=== PATIENT | female | born 1995 | race Caucasian/White ===

== ENCOUNTER 2025-07-30 10:57 | Outpatient (CLI) | payer BC, SELFPAY ==
[2025-08-01 19:54] LABS: HPV Source Cervical
[2025-08-13 10:43] LABS: Pap Test Screened Manually Done
== END 2025-07-30 10:58 | disposition home or self-care (01) ==
PROVIDERS: Visit Provider Obstetrics & Gynecology
DX: Z12.4 Encounter for screening for malignant neoplasm of cervix (principal)
CPT/HCPCS: 87624; 87625; 88141; 88142; 88175